=== PATIENT | female | born 1940 | race Caucasian/White ===

== ENCOUNTER → 2017-09-11 11:46 | Outpatient (CLI) | payer MEDICARE, SELFPAY ==
[2017-09-11 12:59] LABS: Absolute Lymphocyte Count 2.55 X10^3/ul (0.83-4.51); Absolute Neutrophil Count 5.2 X10^3/uL (2.0-7.7); Basophil# 0.01 X10^3/uL; Basophil% 0.1 % (0-1); Eosinophil# 0.23 X10^3/uL; Eosinophils% 2.7 % (0-5); Hematocrit 39.3 % (37-47); Hemoglobin 12.2 g/dl (12.0-15.0); Lymphocyte # 2.55 X10^3/ul (4.0); Lymphocyte % 29.6 % (19-41); Mean Corpuscular Hgb 28.8 pg (27.0-32.0); Mean Corpuscular Volume 92.9 fL (81-99); Mean Platelet Vol. 10.6 fl (6.2-12.0); Monocyte# 0.64 X10^3/uL; Monocyte% 7.4 % (0-10); Neutrophil # 5.17 X10^3/uL (2.7-7.7); Neutrophil % 60.1 % (47-70); Platelet Count 206 K/mm3 (150-450); RBC Distribution Width CV 14.5 % (11.6-14.6); Red Blood Count 4.23 M/mm3 (4.2-5.4); White Blood Count 8.6 K/mm3 (4.4-11.0)
[2017-09-11 13:00] LABS: POSITIVE COUNT NO; POSITIVE DIFFERENTIAL NO; POSITIVE MORPHOLOGY NO
[2017-09-11 13:17] LABS: Vitamin D,25 Hydroxy 55.5 ng/mL
[2017-09-11 13:22] LABS: ALB/GLOB Ratio 0.8 RATIO (0.9-2.4); AST(SGOT) 30 U/L (15-37); Alanine Aminotransfer ALT/SGPT 44 U/L (12-78); Albumin, Serum 3.2 g/dL (3.4-5.0); Alkaline Phosphatase 105 U/L (45-117); Anion Gap 9 (5-15); BUN 28 mg/dL (7-18); BUN/Creat Ratio 21.1 RATIO (10-20); Calcium,Total 8.3 mg/dL (8.5-10.1); Chloride 111 mmol/L (98-107); Creatinine, Serum 1.33 mg/dL (0.55-1.02); EST Glomerular Filtration Rate 41 mL/min (>60); Est Glom Filt Rate - Afr Amer 50 mL/min (>60); Globulin 4.2 g/dL (2.2-4.2); Glucose 91 mg/dL (70-110); Potassium 4.4 mmol/L (3.5-5.1); Protein, Total 7.4 g/dL (6.4-8.2); Sodium Level 144 mmol/L (136-145); Thyroid Stim Hormone (TSH) 1.92 uIU/mL (0.358-3.74)
== END ==
PROVIDERS: Family Provider Family Medicine Geriatric Medicine; PCP Family Medicine Geriatric Medicine; Visit Provider Family Medicine Geriatric Medicine
DX: E11.9 Type 2 diabetes mellitus without complications (principal); I10 Essential (primary) hypertension; E55.9 Vitamin D deficiency, unspecified
CPT/HCPCS: 36415; 80053; 82306; 84443; 85025

== ENCOUNTER → 2017-11-18 11:58 | Outpatient (CLI) | payer MEDICARE, SELFPAY | PROVIDERS: Family Provider Family Medicine Geriatric Medicine; PCP Family Medicine Geriatric Medicine; Visit Provider Family Medicine Geriatric Medicine | DX: M79.609 Pain in unspecified limb (principal); E78.4 Other hyperlipidemia ==

== ENCOUNTER → 2018-03-11 14:04 | Outpatient (CLI) | payer MEDICARE, SELFPAY ==
[2018-03-11 17:34] LABS: Absolute Lymphocyte Count 2.66 X10^3/ul (0.83-4.51); Absolute Neutrophil Count 5.3 X10^3/uL (2.0-7.7); Basophil# 0.01 X10^3/uL; Basophil% 0.1 % (0-1); Eosinophil# 0.09 X10^3/uL; Hematocrit 40.1 % (37-47); Hemoglobin 12.5 g/dl (12.0-15.0); Lymphocyte # 2.66 X10^3/ul (4.0); Lymphocyte % 30.6 % (19-41); Mean Corp Hgb Conc 31.2 g/gl (32-36); Mean Corpuscular Hgb 28.9 pg (27.0-32.0); Mean Corpuscular Volume 92.8 fL (81-99); Mean Platelet Vol. 10.5 fl (6.2-12.0); Monocyte# 0.68 X10^3/uL; Monocyte% 7.8 % (0-10); Neutrophil # 5.25 X10^3/uL (2.7-7.7); Neutrophil % 60.4 % (47-70); POSITIVE COUNT NO; POSITIVE DIFFERENTIAL NO; POSITIVE MORPHOLOGY NO; Platelet Count 227 K/mm3 (150-450); RBC Distribution Width CV 14.1 % (11.6-14.6); RBC Distribution Width SD 47.9 fl (35.1-43.9); Red Blood Count 4.32 M/mm3 (4.2-5.4); White Blood Count 8.7 K/mm3 (4.4-11.0)
[2018-03-11 17:55] LABS: ALB/GLOB Ratio 0.6 RATIO (0.9-2.4); AST(SGOT) 28 U/L (15-37); Alanine Aminotransfer ALT/SGPT 32 U/L (13-56); Alkaline Phosphatase 100 U/L (45-117); Anion Gap 8 (5-15); BUN 25 mg/dL (7-18); BUN/Creat Ratio 18.7 RATIO (10-20); Calcium,Total 8.5 mg/dL (8.5-10.1); Chloride 106 mmol/L (98-107); Creatinine, Serum 1.34 mg/dL (0.55-1.02); EST Glomerular Filtration Rate 41 mL/min (>60); Est Glom Filt Rate - Afr Amer 49 mL/min (>60); Globulin 4.7 g/dL (2.2-4.2); Glucose 107 mg/dL (74-106); Potassium 4.1 mmol/L (3.5-5.1); Protein, Total 7.7 g/dL (6.4-8.2); Sodium Level 141 mmol/L (136-145); Thyroid Stim Hormone (TSH) 1.48 uIU/mL (0.358-3.74)
[2018-03-12 10:14] LABS: Vitamin D,25 Hydroxy 80.5 ng/mL (29.95-100.01)
== END ==
PROVIDERS: Family Provider Family Medicine Geriatric Medicine; PCP Family Medicine Geriatric Medicine; Visit Provider Family Medicine Geriatric Medicine
DX: E11.9 Type 2 diabetes mellitus without complications (principal); I10 Essential (primary) hypertension; E55.9 Vitamin D deficiency, unspecified
CPT/HCPCS: 36415; 80053; 82306; 84443; 85025

== ENCOUNTER → 2018-09-13 14:28 | Outpatient (CLI) | payer MEDICARE, SELFPAY ==
[2018-09-13 16:40] LABS: Absolute Lymphocyte Count 3.38 X10^3/ul (0.83-4.51); Absolute Neutrophil Count 5.7 X10^3/uL (2.0-7.7); Basophil# 0.02 X10^3/uL; Basophil% 0.2 % (0-1); Eosinophil# 0.34 X10^3/uL; Eosinophils% 3.3 % (0-5); Hematocrit 40.5 % (37-47); Hemoglobin 12.2 g/dl (12.0-15.0); Lymphocyte # 3.38 X10^3/ul (4.0); Lymphocyte % 32.8 % (19-41); Mean Corp Hgb Conc 30.1 g/gl (32-36); Mean Corpuscular Hgb 28.4 pg (27.0-32.0); Mean Corpuscular Volume 94.2 fL (81-99); Mean Platelet Vol. 10.6 fl (6.2-12.0); Monocyte# 0.84 X10^3/uL; Monocyte% 8.2 % (0-10); Neutrophil # 5.69 X10^3/uL (2.7-7.7); Neutrophil % 55.3 % (47-70); Platelet Count 214 K/mm3 (150-450); RBC Distribution Width CV 15.1 % (11.6-14.6); RBC Distribution Width SD 51.5 fl (35.1-43.9); White Blood Count 10.3 K/mm3 (4.4-11.0)
[2018-09-13 16:50] LABS: POSITIVE COUNT NO; POSITIVE DIFFERENTIAL NO; POSITIVE MORPHOLOGY NO
[2018-09-13 17:04] LABS: Vitamin D,25 Hydroxy 61.4 ng/mL (29.95-100.01)
[2018-09-13 17:12] LABS: ALB/GLOB Ratio 0.7 RATIO (0.9-2.4); AST(SGOT) 23 U/L (15-37); Alanine Aminotransfer ALT/SGPT 31 U/L (13-56); Alkaline Phosphatase 105 U/L (45-117); Anion Gap 10 (5-15); BUN 17 mg/dL (7-18); BUN/Creat Ratio 13.9 RATIO (10-20); Calcium,Total 8.3 mg/dL (8.5-10.1); Chloride 110 mmol/L (98-107); Creatinine, Serum 1.22 mg/dL (0.55-1.02); EST Glomerular Filtration Rate 45 mL/min (>60); Est Glom Filt Rate - Afr Amer 55 mL/min (>60); Globulin 4.2 g/dL (2.2-4.2); Glucose 97 mg/dL (74-106); Protein, Total 7.2 g/dL (6.4-8.2); Sodium Level 144 mmol/L (136-145); Thyroid Stim Hormone (TSH) 1.71 uIU/mL (0.358-3.74)
== END ==
PROVIDERS: Family Provider Family Medicine Geriatric Medicine; PCP Family Medicine Geriatric Medicine; Visit Provider Family Medicine Geriatric Medicine
DX: E11.9 Type 2 diabetes mellitus without complications (principal); I10 Essential (primary) hypertension; E55.9 Vitamin D deficiency, unspecified
CPT/HCPCS: 36415; 80053; 82306; 84443; 85025

== ENCOUNTER → 2019-03-15 13:17 | Outpatient (CLI) | payer MEDICARE, SELFPAY ==
[2018-09-22 12:37] VITALS: BMI 39.2
[2019-03-15 16:05] LABS: Absolute Lymphocyte Count 1.58 X10^3/uL (0.83-4.51); Absolute Neutrophil Count 2.7 X10^3/uL (2.0-7.7); Basophil# 0.01 X10^3/uL; Basophil% 0.2 % (0-1); Hematocrit 37.6 % (37-47); Hemoglobin 11.7 g/dL (12.0-15.0); Lymphocyte # 1.58 X10^3/ul (4.0); Lymphocyte % 35.4 % (19-41); Mean Corp Hgb Conc 31.1 g/dL (32-36); Mean Corpuscular Hgb 28.5 pg (27.0-32.0); Mean Corpuscular Volume 91.7 fL (81-99); Mean Platelet Vol. 10.4 fl (6.2-12.0); Monocyte% 4.5 % (0-10); NRBC Flagged by Analyzer 0 % (0-5); Neutrophil # 2.66 X10^3/uL (2.7-7.7); Neutrophil % 59.7 % (47-70); Platelet Count 173 K/mm3 (150-450); RBC Distribution Width CV 16.2 % (11.6-14.6); RBC Distribution Width SD 54.4 fl (35.1-43.9); White Blood Count 4.5 K/mm3 (4.4-11.0)
[2019-03-15 16:27] LABS: Vitamin D,25 Hydroxy 83.6 ng/mL (29.95-100.01)
[2019-03-15 16:32] LABS: ALB/GLOB Ratio 0.7 RATIO (0.9-2.4); AST(SGOT) 23 U/L (15-37); Alanine Aminotransfer ALT/SGPT 27 U/L (13-56); Alkaline Phosphatase 95 U/L (45-117); Anion Gap 8 (5-15); BUN 17 mg/dL (7-18); BUN/Creat Ratio 13.3 RATIO (10-20); Calcium,Total 8.4 mg/dL (8.5-10.1); Chloride 110 mmol/L (98-107); Creatinine, Serum 1.28 mg/dL (0.55-1.02); EST Glomerular Filtration Rate 43 mL/min (>60); Est Glom Filt Rate - Afr Amer 52 mL/min (>60); Globulin 4.1 g/dL (2.2-4.2); Glucose 98 mg/dL (74-106); Potassium 3.5 mmol/L (3.5-5.1); Protein, Total 7.1 g/dL (6.4-8.2); Sodium Level 143 mmol/L (136-145); Thyroid Stim Hormone (TSH) 0.97 uIU/mL (0.358-3.74)
== END ==
PROVIDERS: Family Provider Family Medicine Geriatric Medicine; PCP Family Medicine Geriatric Medicine; Visit Provider Family Medicine Geriatric Medicine
DX: E11.9 Type 2 diabetes mellitus without complications (principal); I10 Essential (primary) hypertension; E55.9 Vitamin D deficiency, unspecified
CPT/HCPCS: 36415; 80053; 82306; 84443; 85025

== ENCOUNTER → 2019-07-04 14:01 | Outpatient (CLI) | payer MEDICARE, SELFPAY ==
[2018-09-22 12:37] VITALS: BMI 39.2
== END ==
LOC: LAB 14:04 → PSN 14:15
PROVIDERS: Family Provider Family Medicine Geriatric Medicine; PCP Family Medicine Geriatric Medicine; Referring Provider Family Medicine Geriatric Medicine; Visit Provider Family Medicine Geriatric Medicine
DX: R68.83 Chills (without fever) (principal)
CPT/HCPCS: 87633

== ENCOUNTER 2019-07-26 15:29 | Emergency (ER) | payer MEDICARE, SELFPAY ==
[2018-09-22 12:37] VITALS: BMI 39.2
[2019-07-26 15:30] VITALS: BP 187/98; PULSE 73; RESP 16; TEMP 36.7; O2SAT 98; BMI 32.9
--- NOTE | 2019-07-26 15:40 | CT_ITS ---
STUDY: CT ABDOMEN AND PELVIS WITHOUT CONTRAST REASON FOR EXAM: Female, 78 years old. Abdominal pain. Constipation RADIATION DOSAGE (If Supplied By Facility): CTDIvol = ( 20.86 ) mGy, DLP = ( 1011.07 ) mGycm TECHNIQUE: Transaxial images were obtained from the dome of the diaphragm to the symphysis pubis without oral contrast, and without intravenous contrast. Sagittal and coronal images were reconstructed. Individualized dose optimization techniques were used for this CT. COMPARISON: November 09, 2015. FINDINGS: The visualized lung bases are unremarkable. The visualized portions of the heart are within normal limits. Normal liver. There are multiple gallstones. Normal spleen. Normal pancreas. Normal bilateral adrenal glands. Normal right kidney. Postoperative changes with resection of previously seen mass of the left kidney. There are postoperative changes in the adjacent soft tissues. There is 1.3 cm cyst. There is no hydronephrosis. Normal visualized stomach. Normal small intestine. Normal colon. There is non-visualization of the appendix. There is diffuse atherosclerotic calcification of the abdominal aorta, without a demonstrated aneurysm. Normal inferior vena cava. Normal retroperitoneum. Normal urinary bladder. There are calcified uterine fibroids. There is no free fluid in the abdomen or pelvis. Normal abdominal wall. There is lumbar levoscoliosis with degenerative change. CT/Abdomen/Pelvis without Cont IMPRESSION: Multiple gallstones. No biliary dilatation. No dilated loops of bowel. Postoperative change of the left kidney with resection of previously seen mass. Electronically Signed: Danial Wilkins MD at 16:56 EST , Service support ,
--- NOTE | 2019-07-26 15:43 | ED.VIS.GI ---
History of Present Illness Chief Complaint: Abd Pain Narrative: Patient presenting for evaluation secondary to abdominal pain. Patient reports that yesterday she bought herself a lemon meringue pie from [employer]. After eating it she states that she started to have intense abdominal cramping. She reports that this was a diffuse type abdominal pain that had no exacerbating relieving factors. Patient states that she is still having these cramping type sensations and is actually been constipated since about Thursday. Patient denies any nausea vomiting. She denies any fevers. She denies any urinary signs or symptoms. Patient denies that she has had any sort of abdominal surgeries in the past. Review of systems otherwise negative. Past Medical History - Allergies and Home Meds Allergies/Adverse Reactions: Allergies aspirin Adverse Reaction (Verified 07/26/19 15:34) Unknown Primary Care Physician: Cruz Dias Chi, MD [Primary Care Provider] - Past Medical History: - - Hypertension, hyperlipidemia, diabetes Smoking Status: Former smoker Review of Systems All systems negative except as indicated General: Denies: Chills, Fever, Sweats Eyes: Denies: Visual changes - bilaterally, Diplopia ENT: Denies: Rhinorrhea, Sore throat Cardiovascular: Denies: Chest pain, Palpitations Respiratory: Denies: Dyspnea, Cough, Dyspnea on exertion Gastrointestinal: Reports: Abdominal pain, Constipation Genitourinary: Denies: Dysuria, Hematuria, Frequency Musculoskeletal: Denies: Back pain, Extremity Pain Skin: Denies: Rash, Wounds Neurological: Denies: Headache, Weakness, Numbness Psych: Denies: Depression Endocrine: Denies: Polyuria Hematologic: Denies: Easy bleeding Allergy: Denies: Swelling of the mouth Physical Exam Vital Signs/Narrative: Vital Signs Temp Pulse Resp BP Pulse Ox 07/26/19 15:30 98.0 F 73 16 187/98 H 98 Inital Vital Signs reviewed: Yes General: Well nourished, Well developed, No Acute Distress Head: Normocephalic, Atraumatic Eyes: Perrl, EOMI ENT: Moist mucous membranes, No rhinorrhea Neck: Supple, Nontender Cardiovascular: Regular rate, Regular rhythm, No murmurs Respiratory: No distress, CTA bilaterally, Chest nontender Abdomen: Soft, Tender - Epigastric and suprapubic. Negative for: Guarding, Rebound tenderness Back: Nontender, Normal Inspection Extremities: Nontender, No edema Skin: Normal color, No rash Neurological: Alert, Oriented x3, Cranial nerves II-XII grossly intact, Normal Strength, Normal Sensation Psychological: Normal affect, Normal Mood Diagnostic/Tx/Re-eval - Medical Decision Making Patient presented secondary to abdominal pain. She did have diffuse pain, so IV was established laboratory studies were obtained and CT imaging was performed. CT was negative for acute pathology. Chemistry was found to be unremarkable with no evidence of electrolyte dyscrasia renal insufficiency or elevation of lipase. Patient's CBC was remarkable for some leukopenia with a white blood cell count in the 3000 range, and thrombocytopenia with a platelet count in the 50,000 range. This is new onset for the patient. I do not feel that the patient requires admission for this, but I did arrange close follow-up with her primary care physician. Patient is on no medications at this time that would make me think of platelet suppression, and has not had no recent surgeries or exposures to heparin or other medications that would cause thrombocytopenia. Patient was informed of her laboratory studies. She had improvement with treatment with Bentyl. Patient will be discharged with a course of the same. ED Disposition - Plan for ED Patient: Disposition: Home or Assisted Living Diagnosis: Thrombocytopenia, Abdominal pain Instructions: ABDOMINAL PAIN, Unknown Cause, (Female), Thrombocytopenia Prescriptions: Dicyclomine HCl [Bentyl] 20 mg PO TIDAC #20 cap Transmission Status: Pending to [facility] - [place] - [address] Referrals: Cruz Dias Chi, MD [Primary Care Provider] - 3-5 Days
[2019-07-26] MEDS: Dicyclomine 10 MG Capsule 20 MG PO (16:07)
[2019-07-26 16:36] LABS: Hematocrit 36.2 % (37-47); Hemoglobin 11.5 g/dL (12.0-15.0); Mean Corp Hgb Conc 31.8 g/dL (32-36); Mean Corpuscular Volume 100.8 fL (81-99); Mean Platelet Vol. 9.9 fl (6.2-12.0); POSITIVE COUNT YES; POSITIVE MORPHOLOGY YES; Platelet Count 54 K/mm3 (150-450); RBC Distribution Width CV 17.1 % (11.6-14.6); RBC Distribution Width SD 60.2 fl (35.1-43.9); Red Blood Count 3.59 M/mm3 (4.2-5.4); White Blood Count 3.4 K/mm3 (4.4-11.0)
[2019-07-26 16:40] LABS: Differential Indicated MANUAL DIFF
[2019-07-26 16:55] LABS: ALB/GLOB Ratio 0.7 RATIO (0.9-2.4); AST(SGOT) 25 U/L (15-37); Alanine Aminotransfer ALT/SGPT 43 U/L (13-56); Albumin, Serum 3.2 g/dL (3.2-5.0); Alkaline Phosphatase 88 U/L (45-117); Anion Gap 8 (5-15); BUN 22 mg/dL (7-18); BUN/Creat Ratio 18.2 RATIO (10-20); Chloride 107 mmol/L (98-107); Creatinine, Serum 1.21 mg/dL (0.55-1.02); EST Glomerular Filtration Rate 46 mL/min (>60); Est Glom Filt Rate - Afr Amer 55 mL/min (>60); Estimated Creatinine Clearance 31.19 ml/min; Globulin 4.4 g/dL (2.2-4.2); Glucose 145 mg/dL (74-106); Lipase 169 U/L (73-393); Potassium 4.1 mmol/L (3.5-5.1); Protein, Total 7.6 g/dL (6.4-8.2); Sodium Level 140 mmol/L (136-145)
[2019-07-26 18:15] LABS: Myelocyte 3 (0-0); Neutrophil-Band 6 % (0-5); Neutrophil-Segmented 43 % (47-70); Total Cells Counted 100 (MANUAL DIFF)
[2019-07-26 18:16] LABS: Anisocytosis 2+; Differential Comment SCANNED; Eosinophil 1 % (0-5); Lymphocyte 32 % (19-41); Macrocytosis 1+; Monocyte 15 % (0-10); Ovalocyte RARE; Platelet Estimate MKD DEC (ADEQ)
[2019-07-26 18:18] LABS: Absolute Lymphocyte Count 1.09 X10^3/uL (0.83-4.51); Absolute Neutrophil Count 1.7 X10^3/uL (2.0-7.7); Lymphocyte # 1.09 X10^3/ul (4.0); Neutrophil # 1.67 X10^3/uL (2.7-7.7); Reactive Lymphocyte RARE
[2019-07-27 15:29] LABS: Pathologist Review Reviewed
== END 2019-07-26 17:22 | disposition home or self-care (01) ==
PROVIDERS: Emergency Provider Emergency Medicine; Family Provider Family Medicine Geriatric Medicine; PCP Family Medicine Geriatric Medicine
DX: R10.9 Unspecified abdominal pain (principal); D69.6 Thrombocytopenia, unspecified; E11.9 Type 2 diabetes mellitus without complications; I10 Essential (primary) hypertension; E78.5 Hyperlipidemia, unspecified; Z79.899 Other long term (current) drug therapy; Z88.6 Allergy status to analgesic agent; Z87.891 Personal history of nicotine dependence
CPT/HCPCS: 74176; 80053; 83690; 85025; 99285; A4216

== ENCOUNTER → 2019-07-29 11:45 | Outpatient (CLI) | payer MEDICARE, SELFPAY ==
[2019-07-26 15:30] VITALS: BMI 32.9
[2019-07-29 12:41] LABS: Basophil# 0.02 X10^3/uL; Eosinophil# 0.03 X10^3/uL; Hematocrit 32.5 % (37-47); Hemoglobin 10.2 g/dL (12.0-15.0); Mean Corp Hgb Conc 31.4 g/dL (32-36); Mean Corpuscular Hgb 32.3 pg (27.0-32.0); Mean Corpuscular Volume 102.8 fL (81-99); Mean Platelet Vol. 10.4 fl (6.2-12.0); Monocyte# 0.55 X10^3/uL; NRBC Flagged by Analyzer 0 % (0-5); POSITIVE COUNT YES; POSITIVE DIFFERENTIAL YES; POSITIVE MORPHOLOGY YES; Platelet Count 54 K/mm3 (150-450); RBC Distribution Width CV 17.2 % (11.6-14.6); RBC Distribution Width SD 62.2 fl (35.1-43.9); Red Blood Count 3.16 M/mm3 (4.2-5.4); White Blood Count 3.3 K/mm3 (4.4-11.0)
[2019-07-29 12:46] LABS: Differential Indicated SCAN CRITERIA MET
[2019-07-29 13:39] LABS: Scan Smear per Review Criteria MANUAL DIFF
[2019-07-29 13:44] LABS: Lymphocyte 53 % (19-41); Metamyelocyte 2 % (0-1); Monocyte 19 % (0-10); Myelocyte 2 (0-0); Neutrophil-Band 7 % (0-5); Neutrophil-Segmented 17 % (47-70); Platelet Estimate MKD DEC (ADEQ); Total Cells Counted 100 (MANUAL DIFF)
[2019-07-29 13:45] LABS: Anisocytosis 1+; Red Cell Morphology N CHROM NORMAL (NORM C&C)
[2019-07-29 13:47] LABS: Atypical Lymphocyte 1+ %; Neutrophil # 0.79 X10^3/uL (2.7-7.7)
[2019-07-29 13:48] LABS: Absolute Lymphocyte Count 1.75 X10^3/uL (0.83-4.51); Absolute Neutrophil Count 0.8 X10^3/uL (2.0-7.7); Lymphocyte # 1.75 X10^3/ul (4.0)
[2019-08-01 14:16] LABS: Pathologist Review Reviewed
== END ==
PROVIDERS: Family Provider Family Medicine Geriatric Medicine; PCP Family Medicine Geriatric Medicine; Visit Provider Family Medicine Geriatric Medicine
DX: D69.6 Thrombocytopenia, unspecified (principal)
CPT/HCPCS: 36415; 85025

== ENCOUNTER → 2019-08-26 08:25 | Outpatient (CLI) | payer MEDICARE, SELFPAY ==
[2019-08-09 10:07] VITALS: BMI 32.2
[2019-08-26] VITALS (9 sets, daily range): BP systolic 118–158; BP diastolic 49–76; PULSE 72–85; RESP 12–20; TEMP 36.7; O2SAT 97–100; BMI 34.4
--- NOTE | 2019-08-26 | BMB_PTH ---
PATIENT: REGINA BE LOC: CT U#:[id number] AGE/SX: 84/F ROOM: RE08/26/[address]: Dr. Leno Mcdonnell MD : 1940 BED: DIS: SPEC #: [id number] RECD: 08/26/19 11:48 STATUS: BLAKE REQ #: [id number] MALENA: 08/26/19 00:[address]: Leno Mcdonnell DEPT: BONE MARROW RECD BY: Americo Castro ENTERED: 08/26/19 11:48 SP TYPE: BMB OTHR DR: Dr. 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 The complete report is viewable in patient's EMR. Cytogenetic and FISH studies are pending at this time. See comment. SJ:ara 08/30/19 COMMENT Immunohistochemistry ([id number]) supports the above diagnosis. This case is discussed with Dr. Mcdonnell on 08/30/19. Case has been reviewed in consultation with Dr. Feliz who concurs with the above diagnosis. IDC:AM BONE MARROW STUDY Slides are reviewed. CBC DATE: 08/26/19 WBC 3.5; RBC 1.9; HGB 6.5; HCT 21; MCV 110.5; RDW 18.4; PLTS 44,000 SEGS 15; LYMPHS 67%; MONOS 7%; EOS 2%; BASOS 1%, band 1; meta 5; myelo 1 promyelocyte - 1 PERIPHERAL SMEAR: Submitted. RBC: Macrocytic anemia. WBC: Leukopenia and neutropenia. Rare immature cells are noted suspicious for blasts. The WBC count is compatible to as reported above. PLTS: Decreased. BONE MARROW ASPIRATE DIFFERENTIAL: 200 cell count. Blasts % (normal 0-2): 25 Promyelocytes % (normal 1-5): 5 Myelocytes and metamyelocytes % (normal 17-41): 27 Bands and Segs % (normal 15-32): 8 Eos % (normal 1-6): 1 Basos % (normal 0-1): 0 Monocytes % (normal 0-4): 10 Erythroid Precursors % (normal 17-35): 8 Lymphocytes % (normal 7-13): 6 Plasma Cells % (normal 0-2): 0 ASPIRATE FINDINGS: Site: Not specified Aspicular, Hypocellular Comment: The above count may not be accurate due to hemodilution. Megakaryocytes are not seen. Smears show increased number of blasts and immature monocytes. Myeloid cells show left shift. Decreased number of erythroid cells are also noted. CORE BIOPSY FINDINGS: Site: Not specified Adequacy: Limited Cellularity: 40% M/E ratio: Normal myeloid and erythroid cells are markedly decreased in number. Increased number of immature cells consistent with blasts are noted. Megakaryocytes: Present and decreased in number. Bony trabeculae: Unremarkable. Granulomas: Absent. Lymphoid aggregate: Absent. Atypical infiltrate: Absent. Comment: Increased number of immature cells consistent with blasts is noted and comprise about 25-30% of nucleated cells. Focal clustering of blasts is also noted. Immunohistochemistry ([id number]) shows increased number of blasts. ASPIRATE CLOT FINDINGS: Site: Not specified Marrow particles: Numerous Cellularity: 30-50% M/E ratio: Normal myeloid and erythroid cells are markedly decreased in number. Increased number of immature cells consistent with blasts is noted. Megakaryocytes: Present and decreased in number. Granulomas: Absent. Lymphoid aggregates: Present. Atypical infiltrates: Absent. Comment: Increased number of immature cells consistent with blasts is noted and comprise about 25-30% of nucleated cells. Focal clustering of blasts is also noted. Immunohistochemistry ([id number]) supports the increased number of blasts. Interstitial infiltrates of small lymphocytes and lymphoid aggregates are noted, polytypic in nature, favor benign SPECIAL STAINS WITH MATCHED CONTROLS: Iron: Increased in core biopsy and clot section. Aspirate smears are aspicular and are noncontributory. Reticulin: No significant increase of reticulin fibers is noted. PAS: Highlights myeloid cells and megakaryocytes. BONE MARROW GROSS A - Received is a container labeled with the patient's name and designated core biopsy. The specimen consists of multiple fragments of blood clots mixed with a few fragments of ryan bone measuring in aggregate 0.5 x 0.5 x 0.1 cm. The specimen is totally submitted in one cassette after decalcification. B - Received labeled with the patient's name and designated aspirate is a specimen that consists of approximately 2 cc of reddish fluid that on filtration yields multiple irregular fragments of ryan tissue measuring in aggregate 2 x 1 x <0.1 cm. The specimen is totally submitted in one cassette. C - Also received are 26 unstained and 1 peripheral stained slides. The unstained slides are submitted for appropriate staining. Also received are three green top tubes which are sent to our reference lab for flow, cytogenetics and AML, CML and MDS studies. / AM:ara 08/26/19 TC:0 CPT: 29592, 25036, 34960 x2, 27818 x3, 77826 ADDENDUM ADDENDUM ADDENDUM ADDENDUM ADDENDUM ADDENDUM ADDENDUM ADDENDUM ADDENDUM ADDENDUM ADDENDUM ADDENDUM ADDENDUM ADDENDUM ADDENDUM ADDENDUM ADDENDUM ADDENDUM ADDENDUM ADDENDUM ADDENDUM ADDENDUM ADDENDUM 09/09/2019 09:40 ADDENDUM 09/09/2019 09:40 ADDENDUM 09/09/2019 09:40 ADDENDUM 09/09/2019 09:40 ADDENDUM 09/09/2019 09:40 REPORTS FROM [facility] TEST: Chromosome, leukemia/lymphoma CYTOGENETIC RESULT: 45,XX,add(5)(q13),-7,+11,add(16)(p13),-18[cp17]/46,XX[3] INTERPRETATION: Transforming MDS TEST: AML FISH panel FISH RESULT: 64% of nuclei positive for 5Q deletion; 68% of nuclei positive for 7Q deletion; 6% of nuclei positive for trisomy 8; 66% of nuclei positive for three intact KMT2A signals INTERPRETATION: AML/MDS related close detected TEST: CML FISH FISH RESULT: Normal; no BCR or ABL1 gene rearrangement observed. INTERPRETATION: nuc haris 9q34(ASS1,ABL1)x2,22q11.2(BCRx2)[200] TEST: MDS FISH panel FISH RESULT: 4.5% of nuclei positive for three chromosome 8 signals INTERPRETATION: MDS/MPN/AML related clone detected Please see complete report in e-chart or EMR for further details
--- NOTE | 2019-08-26 | IMM_PTH ---
PATIENT: REGINA BE LOC: CT U#:[id number] AGE/SX: 84/F ROOM: RE08/26/[address]: Dr. Leno Mcdonnell MD : 1940 BED: DIS: SPEC #: [id number] RECD: 08/29/19 12:20 STATUS: SOUVega REQ #: [id number] MALENA: 08/26/19 00:[address]: Leno Mcdonnell DEPT: IMMUNOHISTOCHEMISTRY RECD BY: Ailin Remy ENTERED: 08/29/19 12:24 SP TYPE: IMMUNO OTHR DR: Dr. Cruz Dias MD Tissues: A - Bone marrow of iliac crest B - Bone marrow of iliac crest Procedures: CD20 (add) CD3 (add) CD45 (add) CD5 (add) CD56 (add) CD79A (add) CD34 (initial) PHYSICIAN & INSTITUTION [place] [address] SPECIMEN INFORMATION: Tissue Source: A - Bone marrow core, B - Bone marrow clot Clinical Info: Pancytopenia Specimen Number: [id number] A & B CPT code: 77292 x2, 72194 x7 METHODOLOGY: Deparaffinized sections of prefer/formalin-fixed tissue or PAP/DQ stained slides are incubated with monoclonal/polyclonal antibodies/oligonucleotide probes. Localization is made via biotin free immunoperoxidase method. Appropriate controls are performed and reacted as expected. Results on target cell population are indicated in the following table: RESULTS: ANTIBODY / CLONE RESULT Block A CD34 (QBEnd-10) positive CD56 (123C3.D5) negative Block B CD34 (QBEnd-10) positive CD56 (123C3.D5) negative CD3 (PS1) positive CD5 (SP10) positive CD20 (L26) positive CD79a (11E3) positive CD45 (RP2/18) positive These tests were developed and their performance characteristics determined by [facility]. They may not have been cleared or approved by the U.S. Food and Drug Administration. The FDA has determined that such clearance or approval is not necessary. The above immunohistochemical/dualISH markers are ordered and reviewed by the Pathologist. INTERPRETATION: A. Bone marrow core: Increased number of blasts are noted consistent with acute myeloid leukemia. B. Bone marrow clot: Increased number of blasts are noted consistent with acute myeloid leukemia Interstitial infiltrates of small lymphocytes and lymphoid aggregates are noted, polytypic in nature, favor benign. SJ:ara 08/30/19 Case has been reviewed in consultation with Dr. Feliz who concurs with the above diagnosis. IDC:AM
[2019-08-26 08:43] LABS: Hemoglobin 6.5 g/dL (12.0-15.0); Mean Corpuscular Hgb 34.2 pg (27.0-32.0); Mean Corpuscular Volume 110.5 fL (81-99); POSITIVE COUNT YES; POSITIVE DIFFERENTIAL YES; POSITIVE MORPHOLOGY YES; RBC Distribution Width CV 18.4 % (11.6-14.6); RBC Distribution Width SD 70.5 fl (35.1-43.9); White Blood Count 3.5 K/mm3 (4.4-11.0)
[2019-08-26 08:48] LABS: Differential Indicated MANUAL DIFF; Platelet Count 44 K/mm3 (150-450)
--- NOTE | 2019-08-26 09:01 | CT_ITS ---
PROCEDURE: CT GUIDED left iliac bone marrow biopsy. DATE: August 26, 2019. INDICATION: Female, 78 years old. Melvin cytopenia. PHYSICIAN: Arnulfo Hinojosa M.D. RADIATION DOSAGE (If Supplied By Facility): CTDIvol = ( 17.5 ) mGy, DLP = ( 442.6 to ) mGycm. Individualized dose optimization techniques were utilized. PROCEDURE: The risks, benefits, and alternatives to the procedure were explained to the patient. The specific risk of hemorrhage requiring further treatment or intervention was detailed and accepted. Follow-up instructions were discussed with the patient as well. Written informed consent was obtained. The patient was brought into the CT suite and placed in the prone position. . An appropriate entry site was identified. The overlying skin was prepped and draped in the usual sterile fashion. 1% lidocaine was administered subcutaneously for local anesthesia. Conscious sedation was performed. Conscious sedation was started at 9:45 AM and terminated at 9:56 AM. The patient received 2 mg of Versed and 50 mcg of fentanyl intravenously. The patient was independently monitored by the department nurse. Under CT guidance, a a bone marrow biopsy and bone marrow aspirates of the posterior left iliac bone were performed The specimens were then placed in the appropriate fluid and transported to the laboratory for analysis. Hemostasis was obtained. The patient tolerated the procedure well without immediate complications. CT/Biopsy/Inj or Needle Placement IMPRESSION: Successful CT guided bone marrow biopsy of the posterior left iliac bone., as described above. Electronically Signed: Arnulfo Hinojosa, at 10:47 EST , Service support ,
[2019-08-26 09:31] LABS: Basophil 1 % (0-1); Eosinophil 2 % (0-5); Lymphocyte 67 % (19-41); Metamyelocyte 5 % (0-1); Monocyte 7 % (0-10); Myelocyte 1 (0-0); Neutrophil-Band 1 % (0-5); Neutrophil-Segmented 15 % (47-70); Promyelocyte 1 (0-0); Total Cells Counted 100 (MANUAL DIFF)
[2019-08-26 09:32] LABS: Anisocytosis 1+; Platelet Estimate MKD DEC (ADEQ); Red Cell Morphology N CHROM NORMAL (NORM C&C)
[2019-08-26 09:33] LABS: Absolute Lymphocyte Count 2.35 X10^3/uL (0.83-4.51); Absolute Neutrophil Count 0.6 X10^3/uL (2.0-7.7); Lymphocyte # 2.35 X10^3/ul (4.0)
[2019-08-26] MEDS: Midazolam 2 MG/2 ML Syringe IV (09:45)
[2019-08-26] MEDS: fentaNYL 100 MCG/2 ML Ampul IV (09:47)
[2019-08-26 14:25] LABS: Pathologist Review Reviewed
== END ==
PROVIDERS: Family Provider Family Medicine Geriatric Medicine; PCP Family Medicine Geriatric Medicine; Referring Provider Internal Medicine Medical Oncology; Visit Provider Internal Medicine Medical Oncology
DX: C92.00 Acute myeloblastic leukemia, not having achieved remission (principal); D61.818 Other pancytopenia
CPT/HCPCS: 38222; 36415; 77012; 85025; 88305; 88311; 88313; 88341; 88342; 99156; J7040; A4216

== ENCOUNTER 2019-09-07 12:27 | Observation (INO) | payer MEDICARE, MEDICAID, SELFPAY ==
[2019-09-01 14:00] VITALS: BMI 33.5
[2019-09-07] VITALS (13 sets, daily range): BP systolic 98–139; BP diastolic 42–98; PULSE 69–86; RESP 16–22; TEMP 36.6–37.7; O2SAT 91–97; BMI 33.3; BMI 31.4
[2019-09-07 13:05] LABS: Hematocrit 17.3 % (37-47); Mean Corp Hgb Conc 31.2 g/dL (32-36); Mean Corpuscular Hgb 34.8 pg (27.0-32.0); Mean Corpuscular Volume 111.6 fL (81-99); Mean Platelet Vol. 12.1 fl (6.2-12.0); POSITIVE COUNT YES; POSITIVE DIFFERENTIAL YES; POSITIVE MORPHOLOGY YES; Platelet Count 31 K/mm3 (150-450); RBC Distribution Width CV 20.2 % (11.6-14.6); RBC Distribution Width SD 80.8 fl (35.1-43.9); Red Blood Count 1.55 M/mm3 (4.2-5.4); White Blood Count 2.7 K/mm3 (4.4-11.0)
[2019-09-07 13:17] LABS: International Normalized Ratio 1.4; Prothrombin Time (Protime)PT. 17.1 SECONDS (11.7-14.9)
[2019-09-07 13:19] LABS: ALB/GLOB Ratio 0.4 RATIO (0.9-2.4); AST(SGOT) 82 U/L (15-37); Alanine Aminotransfer ALT/SGPT 90 U/L (13-56); Albumin, Serum 1.9 g/dL (3.2-5.0); Alkaline Phosphatase 60 U/L (45-117); Anion Gap 11 (5-15); BUN 34 mg/dL (7-18); Calcium,Total 8.1 mg/dL (8.5-10.1); Chloride 104 mmol/L (98-107); Creatinine, Serum 1.79 mg/dL (0.55-1.02); EST Glomerular Filtration Rate 29 mL/min (>60); Est Glom Filt Rate - Afr Amer 35 mL/min (>60); Estimated Creatinine Clearance 21.08 ml/min; Globulin 4.7 g/dL (2.2-4.2); Glucose 176 mg/dL (74-106); Potassium 3.2 mmol/L (3.5-5.1); Protein, Total 6.6 g/dL (6.4-8.2); Sodium Level 139 mmol/L (136-145)
[2019-09-07 13:24] LABS: Differential Indicated MANUAL DIFF; Hemoglobin 5.4 g/dL (12.0-15.0)
[2019-09-07 14:03] LABS: Anisocytosis 1+; Blast 13 % (0-0); Lymphocyte 40 % (19-41); Metamyelocyte 7 % (0-1); Monocyte 9 % (0-10); Myelocyte 5 (0-0); Neutrophil-Segmented 22 % (47-70); Platelet Estimate MKD DEC (ADEQ); Promyelocyte 4 (0-0); Red Cell Morphology N CHROM NORMAL (NORM C&C); Total Cells Counted 100 (MANUAL DIFF)
[2019-09-07 14:05] LABS: Absolute Neutrophil Count 0.6 X10^3/uL (2.0-7.7)
--- NOTE | 2019-09-07 14:22 | HP.PCM_ITS ---
History of Present Illness Date of Admission: 09/07/19 Chief Complaint: Weakness The patient is a 78 year old F PMH as below who presents from home with weakness and fatigue. She is also little bit short of breath. The family states that about a week ago she was diagnosed with AML and at that time she refused treatment, oncology did discuss all the options with her and she still refused therapy. She presents today because of abnormal labs with a hemoglobin of 5.4 and a platelet count of 31. The daughter said that she has been becoming being more confused as time has gone on, and also has become more tired and fatigued, even since her diagnosis last week. In discussing this with the patient, she st ates that she would like hospice and that she understands and hospice is end-of-life care. She would like to go home with hospice and she does not want to go to an inpatient hospice facility. Past Medical History Past Medical History (Chronic Problems): Chronic Problems (Last Reviewed 09/01/19 @ 13:59 by Sidra Joshi) Hyperlipidemia (Chronic) Essential (primary) hypertension (Chronic) Medical History: Medical History (Last Reviewed 09/01/19 @ 13:59 by Sidra Joshi) Hyperlipidemia (Chronic) E78.5 Essential (primary) hypertension (Chronic) I10 Arthritis M19.90 Essential tremor G25.0 GERD (gastroesophageal reflux disease) K21.9 Hypokalemia E87.6 Obesity E66.9 Type 2 diabetes mellitus E11.9 Lung cancer C34.90 Allergies aspirin Adverse Reaction (Verified 09/07/19 12:30) Unknown Home Medications: Ambulatory Orders Medication Instructions Recorded ergocalciferol (vitamin D2) 1,250 50,000 unit PO QWEEK 28 Days #4 cap 09/21/18 mcg (50,000 unit) capsule nebivolol 10 mg tablet 10 mg PO DAILY 90 Days #90 tab 09/21/18 Omeprazole 20 mg PO DAILY 09/07/19 Unicomplex-M 1 tab PO DAILY 09/07/19 Surgical History: Surgical History (Last Updated 09/01/19 @ 14:00 by Sidra Joshi) History of bone marrow biopsy Z98.890 Aug 2019 History of open reduction and internal fixation (ORIF) procedure Z98.890 right ankle left lung wedge resection Onset Date: ~2015 Smoking Status: Former smoker Tobacco Use: Cigarettes Alcohol: None Drugs: None - *Family History Maternal Family History: Family History (Last Reviewed 09/01/19 @ 13:59 by Sidra Joshi) Sister Myocardial infarction Heart disease Mother Heart disease Father Heart disease Other CAD (coronary artery disease) History Items: Cancer Review of Systems Constitutional: Reports: Weakness, Fatigue. Denies: Chills, Fever, Weight Change HEENT: Denies: Head Aches, Sinus Congestion, Sinus Drainage Cardiovascular: Denies: Chest Pain, Palpitations Respiratory: Reports: Shortness of Breath. Denies: Cough, Shortness of breath at rest, Sputum production Gastrointestinal: Denies: Abdominal Pain, Nausea, Vomiting Genitourinary: Denies: Dysuria Musculoskeletal: Denies: Joint Pain, Joint Tenderness Skin: Denies: Rash, Wounds Neurological: Denies: Numbness, Tingling, Focal weakness Psychiatric: Denies: Anxiety, Depression Hematologic/ Lymphatic: Denies: Easy Bruising, Easy Bleeding VTE Information - Inpt Only VTE Present on Admission: No - Physical Exam Vitals/I&O's: Vital Signs Temp Pulse Resp BP Pulse Ox 98 F 85 16 122/59 H 97 09/07/19 12:28 09/07/19 12:28 09/07/19 12:28 09/07/19 12:28 09/07/19 12:28 Oxygen Delivery Method Room Air Weight: 188 lb Body Mass Index (BMI) 33.3 General: Alert, Oriented x3, Cooperative, Lethargic HEENT: Atraumatic, PERRLA, EOMI, Normocephalic, - - Pale conjunctiva Oral: Dry Mucosa Neck: Supple, No JVD Lungs: Clear to auscultation, Normal air movement, No rhonchi, No wheeze, No rales Cardiovascular: Regular rate, Regular Rhythm, Normal S1, Normal S2, No murmurs Abdomen: Soft, Non Tender, Non-Distended, No Hepato-splenomegaly Extremities: No edema, Capillary Refill Less than 3 Seconds Skin: No rashes, No breakdown, - - Skin is pale Neurological: Neuro grossly intact, Sensory exam intact to light touch and pain Psych/Mental Status: Normal Affect, Appropriate Laboratory Results 09/07/19 12:50: PT 17.1 H, INR 1.4 09/07/19 12:50: WBC 2.7 L, RBC 1.55 L, Hgb 5.4 L*, Hct 17.3 L, MCV 111.6 H, MCH 34.8 H, MCHC 31.2 L, RDW Std Deviation 80.8 H, RDW Coeff of Kalpesh 20.2 H, Plt Count 31 L*, MPV 12.1 H, Neut % (Auto) Not Reportable, Absolute Neuts (auto) 0.6 L, Absolute Lymphs (auto) 1.10, Total Counted 100, Neutrophils % (Manual) 22 L, Lymphocytes % (Manual) 40, Monocytes % (Manual) 9, Metamyelocytes % 7 H, Myelocytes % 5 H, Promyelocytes % 4 H, Blast Cells % 13 H*, Diff Path Review December foll, Platelet Estimate MKD DEC, RBC Morphology N CHROM, Anisocytosis 1+ 09/07/19 12:50: Sodium 139, Potassium 3.2 L, Chloride 104, Carbon Dioxide 24.0, Anion Gap 11, BUN 34 H, Creatinine 1.79 H, Estim Creat Clear Calc 21.08, Est GFR (MDRD) Af Amer 35 L, Est GFR (MDRD) Non-Af 29 L, BUN/Creatinine Ratio 19.0, Glucose 176 H, Calcium 8.1 L, Total Bilirubin 0.90, AST 82 H, ALT 90 H, Alkaline Phosphatase 60, Total Protein 6.6, Albumin 1.9 L, Globulin 4.7 H, Albumin/Globulin Ratio 0.4 L 09/07/19 12:50: Blood Type Pending, Antibody Screen Pending, Crossmatch See Detail Assessment/Plan All Active Problems (Last Reviewed 09/01/19 @ 13:59 by Sidra Joshi) Chest pain (Acute) Pancytopenia (Acute) Acute myeloid leukemia (Acute) 1. AML/pancytopenia -She had labs done today which showed a hemoglobin of 5.4 and she was asked to come into the ER -She is refusing therapies for AML and would like to go home with hospice after she receives a transfusion -2 units of PRBCs were ordered in the ER but have not been given yet -Her anemia has steadily been worsening as has her thrombocytopenia -In February of this year she had lab work with a hemoglobin 11.7 which was at baseline for her, her white blood cell count was normal, and her platelet count was at 173 -I had a 20-minute discussion with the family on CODE STATUS is well as what hospice is. They understand that hospice will come out relatively frequently but that it will be up to them to assist the patient with eating and bathing. She did not seem confused today, she knew she was at the hospital and who she was, but the daughter explains that she had told the previous ER physician that she had lung cancer when in reality she had kidney cancer. The daughter states that her mother does not have a POA. She did explain that last week in the oncologist office, the discussion was had about what therapeutic options and were not at that time her mother did not want any treatment for her AML. We will place a consult for hospice to come and discuss care with the family 2. HTN/HLD/hypokalemia -At this time will continue with her home blood pressure medications -Replace potassium which was 3.2 3. GERD -Stable -Continue with PPI DVT: SCDs Code Visit OBSV E&M: 05429 Initial observation care L2 Procedures: 83650 Advncd Care Plan 30 Min
--- NOTE | 2019-09-07 14:35 | ED.VISSUMM ---
- ER Visit Summary Date of Service: 09/07/19 Chief Complaint: Anemia History of Present Illness: The patient is a [address] Dias and Dr. Mcdonnell. 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 She knows that she is anemic. She would like to have a blood transfusion for this and understands that this will only help transiently. She does not want any further treatment for the AML and would like to have hospice help her pass peacefully at home. Physical Examination: Vitals: Stable. Afebrile. General: Well-nourished and well-developed. Head: Normocephalic atraumatic. Neck: Supple, no lymphadenopathy. No JVD. Nontender. Cardiovascular: Regular rate and rhythm. No murmurs. Respiratory: No respiratory distress. Clear to auscultation bilaterally. Abdominal: Soft, nontender, nondistended, normal bowel sounds. No guarding, rebound, or peritoneal signs. Back: Nontender. Extremities: Nontender, no edema. Skin: Pale, no rash. Neurologic: Alert and oriented ?3. Cranial nerves II through XII are intact. Normal strength and sensation. Psych: Normal affect. Test Results: CBC shows a white count of 2.7, H&H of 5.4 and 17.3, platelets 31. Chem-7 shows a potassium of 3.3, calcium 8.1, glucose 133, BUN 34, creatinine 1.79. He shown albumin 1.9, globulin 4.7, ALT of 90, AST of 83. INR is 1.4. Emergency Department Course and Treatment: Patient is resting comfortably without complaint. She was typed and crossed for 2 units of packed red blood cells. Treatment Plan: I did page the hospice nurse. I have not heard back from them yet. She will be admitted to the hospital overnight for transfusion and to have hospice see her and help make arrangements for her to go home. Patient was discussed with Dr. Smith. Disposition: Admitted in serious condition. Impression: 1. Anemia. 2. AML. 3. Hospice consult. This note was generated with My-App[employer]ation software. It may contain incorrect words, spelling, and punctuation that were not noted in review of the chart prior to signing
--- NOTE | 2019-09-07 16:16 | CASEMGMT ---
Social Work Note Charge Nurse updated this worker that Hospice will need to be consulted once pt arrives to floor as Hospice was unable to be reached while pt was in ED. Pt finally on floor. CHITO met with pt, pt's daughter Ene and pt's sister Janki. CHITO introduced self and role at [facility]. Pt is alert and orientated x3. CHITO updated pt and family that this worker received Hospice Consult and asked family for preference on Hospice Agency. Pt and Family in agreement with [facility]. CHITO explained that this worker will make referral to [facility] and then Hospice will ask for family member to call regarding arranging a meeting time. Pt and pt's family agreeable to [facility] calling pt's daughter Ene to arrange meeting time. CHITO placed a call to [facility] and provided referral to [facility]. Keiry states she already received the consult from the ED for pt. Keiry states she was informed to call pt directly but when she called the pt didn't answer and hasn't returned the phone call. CHITO updated Keiry that pt and pt's family are agreeable to Hospice calling pt's daughter Ene. CHITO provided Keiry with Ene's numbers listed on demographics. Plan: Hospice to arrange meeting time to discuss services. Pt wishes to discharge home with Hospice Cassie Busch BRIM EDGE TRIMMER, STUDIO DESIGNER
--- NOTE | 2019-09-07 20:19 | NURSING ---
spoke with pt's on phone per request. assisted pt to call from her phone in room
[2019-09-08 03:46] VITALS: BP 136/74; PULSE 83; RESP 24; TEMP 38.2; O2SAT 87; O2SAT 94
[2019-09-08] MEDS: 0.9% Saline Lock 10 ML Syringe IV (04:32)
[2019-09-08] MEDS: Acetaminophen 325 MG Tablet 650 MG PO (04:32)
[2019-09-08 06:05] VITALS: BP 121/66; PULSE 72; RESP 20; TEMP 36.8; O2SAT 96
[2019-09-08 07:46] LABS: Hematocrit 23.8 % (37-47); Hemoglobin 7.9 g/dL (12.0-15.0); Mean Corp Hgb Conc 33.2 g/dL (32-36); Mean Corpuscular Hgb 32.1 pg (27.0-32.0); Mean Corpuscular Volume 96.7 fL (81-99); Mean Platelet Vol. 12.3 fl (6.2-12.0); POSITIVE COUNT YES; POSITIVE DIFFERENTIAL YES; POSITIVE MORPHOLOGY YES; RBC Distribution Width CV 21.6 % (11.6-14.6); RBC Distribution Width SD 70.6 fl (35.1-43.9); Red Blood Count 2.46 M/mm3 (4.2-5.4)
[2019-09-08 07:49] LABS: Differential Indicated MANUAL DIFF
[2019-09-08 07:51] LABS: Platelet Count 20 K/mm3 (150-450)
[2019-09-08 08:05] LABS: ALB/GLOB Ratio 0.3 RATIO (0.9-2.4); AST(SGOT) 102 U/L (15-37); Alanine Aminotransfer ALT/SGPT 97 U/L (13-56); Albumin, Serum 1.5 g/dL (3.2-5.0); Alkaline Phosphatase 56 U/L (45-117); Anion Gap 5 (5-15); BUN 30 mg/dL (7-18); BUN/Creat Ratio 25.4 RATIO (10-20); Calcium,Total 7.8 mg/dL (8.5-10.1); Chloride 108 mmol/L (98-107); Creatinine, Serum 1.18 mg/dL (0.55-1.02); EST Glomerular Filtration Rate 47 mL/min (>60); Est Glom Filt Rate - Afr Amer 57 mL/min (>60); Estimated Creatinine Clearance 31.98 ml/min; Globulin 4.4 g/dL (2.2-4.2); Glucose 115 mg/dL (74-106); Potassium 3.3 mmol/L (3.5-5.1); Protein, Total 5.9 g/dL (6.4-8.2); Sodium Level 140 mmol/L (136-145)
[2019-09-08 08:24] LABS: Blast 11 % (0-0); Eosinophil 1 % (0-5); Lymphocyte 39 % (19-41); Metamyelocyte 5 % (0-1); Monocyte 22 % (0-10); Myelocyte 1 (0-0); Neutrophil-Band 2 % (0-5); Neutrophil-Segmented 17 % (47-70); Nucleated Red Bld Cells,Manual 5 % (0-5); Promyelocyte 2 (0-0); Total Cells Counted 100 (MANUAL DIFF)
[2019-09-08 08:25] LABS: Anisocytosis 1+; Hypochromasia 2+; Macrocytosis 1+; Platelet Estimate MKD DEC (ADEQ); Polychromasia 1+; Toxic Granulation RARE
[2019-09-08 08:27] LABS: Vacuolated Cells RARE
[2019-09-08 08:28] LABS: Absolute Neutrophil Count 0.4 X10^3/uL (2.0-7.7)
--- NOTE | 2019-09-08 10:06 | CASEMGMT ---
Social Work Note RN updated this worker that pt's daughter will be coming in today with pt's and then will be calling Hospice and will be meeting with Hospice today. Cassie Busch CHEMICAL PRODUCTION ENGINEER, SYSTEMS TEST ENGINEER
--- NOTE | 2019-09-08 10:47 | PCM.DC ---
- Discharge Diagnoses Reason(s) for Visit for Discharge Instructions: Generalised weakness You will use the following diet at home:: Regular Your food should be the consistency of: Regular Your liquids should be the consistency of: Regular/Thin Discharge Activity: Return to Normal Activity Allergies/Adverse Reactions: Allergies aspirin Adverse Reaction (Verified 09/07/19 12:30) Unknown Medications to take at Discharge ergocalciferol (vitamin D2) 1,250 mcg (50,000 unit) capsule 50,000 unit PO MO 28 Days #4 cap 09/21/18 nebivolol 10 mg tablet 10 mg PO DAILY 90 Days #90 tab 09/21/18 Omeprazole 20 mg PO DAILY 09/07/19 Unicomplex-M 1 tab PO DAILY 09/07/19 Acetaminophen [Tylenol Tablet] 650 mg PO Q6H PRN PRN tablet 09/08/19 Ensure Enlive 120 ml PO 4X/DAY #120 liquid 09/08/19 The following prescriptions were given: Ensure Enlive 120 ml PO 4X/DAY #120 liquid Transmission Status: Pending to [facility] - [id number] Primary Care Physician: rCuz Dias Chi, MD [Primary Care Provider] - Test Results: Test results from this visit will be discussed in further detail at your follow-up appointment, if applicable. Proposed Discharge Date: 09/08/19
--- NOTE | 2019-09-08 10:51 | DS.PCM_ITS ---
Discharge Date and Diagnosis Date of Admission: 09/07/19 Date of Discharge: 09/08/19 - Primary Discharge Diagnosis Debility AML Hypokalemia Pancytopenia Acute hypoxic respiratory insufficiency - Secondary Discharge Diagnosis Chronic Problems (Last Reviewed 09/01/19 @ 13:59 by Sidra Joshi) Hyperlipidemia (Chronic) Essential (primary) hypertension (Chronic) Hospital Course and Treatment None Operations: None Procedures: None Summary of Care Provided: The patient is a 78 year old F has medical history of hypertension, hyperlipidemia who was admitted with progressive weakness. Patient was recently diagnosed with AML and had refused treatment with oncology. She presented because her labs were abnormal with hemoglobin of 5.4. She received 2 units of packed RBC. Repeat blood work was 7.9. Potassium was also replaced. Hospice met with the family and the plan was discharged home with hospice. The day of discharge, her white cell count was 2.1, hemoglobin 7.9, platelet count 20, blood cells 11%, sodium 140, potassium 3.3, chloride 1098, bicarbonate 27, creatinine 1.18 down from 1.79, BUN was 30, bilirubin increased to 1.30, AST 102, ALT 97 ALP 56, albumin was 1.5. Patient was on 2 L of oxygen. She was discharged to hospice. Subjective: On the day of discharge, patient was seen and examined. No acute events overnight. Family was meeting Hospice again today Objective: Physical exam: General: Alert, Oriented x3, Cooperative, Lethargic HEENT: Atraumatic, PERRLA, EOMI, Normocephalic, - - Pale conjunctiva Oral: Dry Mucosa Neck: Supple, No JVD Lungs: Clear to auscultation, Normal air movement, No rhonchi, No wheeze, No rales Cardiovascular: Regular rate, Regular Rhythm, Normal S1, Normal S2, No murmurs Abdomen: Soft, Non Tender, Non-Distended, No Hepato-splenomegaly Extremities: No edema, Capillary Refill Less than 3 Seconds Skin: No rashes, No breakdown, - - Skin is pale Neurological: Neuro grossly intact, Sensory exam intact to light touch and pain Psych/Mental Status: Normal Affect, Appropriate - Physical Exam Vitals/I&O's: Vital Signs Temp Pulse Resp BP Pulse Ox 98.3 F 72 20 H 121/66 H 96 09/08/19 06:05 09/08/19 06:05 09/08/19 06:05 09/08/19 06:05 09/08/19 06:05 Oxygen Flow Rate (L/min) 2 Oxygen Delivery Method Nasal Cannula Weight: 80.5 kg Body Mass Index (BMI) 31.4 Intake and Output for Last 24 Hours 09/06/19 09/07/19 09/08/19 23:59 23:59 23:59 Intake Total 920 / 1020 200 / 200 Output Total 550 / 550 Balance 920 / 670 -350 / -350 Laboratory Results 09/07/19 12:50: PT 17.1 H, INR 1.4 09/07/19 12:50: WBC 2.7 L, RBC 1.55 L, Hgb 5.4 L*, Hct 17.3 L, MCV 111.6 H, MCH 34.8 H, MCHC 31.2 L, RDW Std Deviation 80.8 H, RDW Coeff of Kalpesh 20.2 H, Plt Count 31 L*, MPV 12.1 H, Neut % (Auto) Not Reportable, Absolute Neuts (auto) 0.6 L, Absolute Lymphs (auto) 1.10, Total Counted 100, Neutrophils % (Manual) 22 L, Lymphocytes % (Manual) 40, Monocytes % (Manual) 9, Metamyelocytes % 7 H, Myelocytes % 5 H, Promyelocytes % 4 H, Blast Cells % 13 H*, Diff Path Review December foll, Platelet Estimate MKD DEC, RBC Morphology N CHROM, Anisocytosis 1+ 09/07/19 12:50: Sodium 139, Potassium 3.2 L, Chloride 104, Carbon Dioxide 24.0, Anion Gap 11, BUN 34 H, Creatinine 1.79 H, Estim Creat Clear Calc 21.08, Est GFR (MDRD) Af Amer 35 L, Est GFR (MDRD) Non-Af 29 L, BUN/Creatinine Ratio 19.0, Glucose 176 H, Calcium 8.1 L, Total Bilirubin 0.90, AST 82 H, ALT 90 H, Alkaline Phosphatase 60, Total Protein 6.6, Albumin 1.9 L, Globulin 4.7 H, Albumin/Globulin Ratio 0.4 L 09/07/19 12:50: Blood Type A POSITIVE, Antibody Screen NEGATIVE, Crossmatch See Detail 09/08/19 07:38: WBC WHEEL AND PINION INSPECTOR, Corrected WBC 2.0 L, RBC 2.46 L, Hgb 7.9 L, Hct 23.8 L, MCV 96.7 D, MCH 32.1 H, MCHC 33.2, RDW Std Deviation 70.6 H, RDW Coeff of Kalpesh 21.6 H, Plt Count 20 L*, MPV 12.3 H, Neut % (Auto) Not Reportable, Absolute Neuts (auto) 0.4 L, Absolute Lymphs (auto) 7.80 H, Total Counted 100, Neutrophils % (Manual) 17 L, Band Neutrophils % 2, Lymphocytes % (Manual) 39, Monocytes % (Manual) 22 H, Eosinophils % (Manual) 1, Metamyelocytes % 5 H, Myelocytes % 1 H, Promyelocytes % 2 H, Blast Cells % 11 H*, Nucleated RBCs/100 WBC 5, Diff Path Review May foll, Toxic Granulation RARE, Toxic Vacuolation RARE, Platelet Estimate MKD DEC, Polychromasia 1+, Hypochromasia 2+, Anisocytosis 1+, Macrocytosis 1+ 09/08/19 07:38: Sodium 140, Potassium 3.3 L, Chloride 108 H, Carbon Dioxide 27.0, Anion Gap 5, BUN 30 H, Creatinine 1.18 H, Estim Creat Clear Calc 31.98, Est GFR (MDRD) Af Amer 57 L, Est GFR (MDRD) Non-Af 47 L, BUN/Creatinine Ratio 25.4 H, Glucose 115 H, Calcium 7.8 L, Total Bilirubin 1.30 H, AST 102 H, ALT 97 H, Alkaline Phosphatase 56, Total Protein 5.9 L, Albumin 1.5 L, Globulin 4.4 H, Albumin/Globulin Ratio 0.3 L Current Medications Acetaminophen (Tylenol) 650 mg PO Q6H PRN PRN PRN Reason: for temperature > 100.4 Last Admin: 09/08/19 04:32 Dose: 650 mg Documented by: Ergocalciferol (Vitamin D) 50,000 unit PO MO [facility] Nebivolol (Bystolic) 10 mg PO DAILY [facility] Nutritional Formula (Lactose Free) (Ensure Enlive) 120 ml PO 4X/DAY TARA Last Admin: 09/07/19 20:15 Dose: Not Given Documented by: Pantoprazole Sodium (Protonix) 20 mg PO DAILY [facility] Sodium Chloride () 10 - 40 ml IV UD PRN PRN Reason: SALINE FLUSH Last Admin: 09/08/19 04:32 Dose: 10 ml Documented by: Discharge Diet: No Restrictions Discharge Activity: Return to Normal Activity Home Medications: Medications to take at Discharge ergocalciferol (vitamin D2) 1,250 mcg (50,000 unit) capsule 50,000 unit PO MO 28 Days #4 cap 09/21/18 nebivolol 10 mg tablet 10 mg PO DAILY 90 Days #90 tab 09/21/18 Omeprazole 20 mg PO DAILY 09/07/19 Unicomplex-M 1 tab PO DAILY 09/07/19 Acetaminophen [Tylenol Tablet] 650 mg PO Q6H PRN PRN tab 09/08/19 Ensure Enlive 120 ml PO 4X/DAY #120 liquid 09/08/19 Following Prescrptions Were Given to Patient: Ensure Enlive 120 ml PO 4X/DAY #120 liquid Transmission Status: Received by [facility] - [id number] Primary Care Physician: Cruz Dias Chi, MD [Primary Care Provider] - Disposition: Home with Hospice Minutes spent on discharge:: 40 Patient Condition:: Stable Medical Necessity - Tobacco Use Smoking Status: Former smoker Tobacco Use: Secondhand, Cigarettes Meaningful Use Info Meaningful Use Diagnoses (Choose all that apply): None applicable Code Visit Inpatient E&M: 38927 Disch Hosp
[2019-09-08 11:34] VITALS: BP 132/72; PULSE 73; RESP 14; TEMP 36.3; O2SAT 97
--- NOTE | 2019-09-08 12:06 | NURSING ---
Call to [facility] to find out what the plan was for patient, told Karely that there was no documentation on the chart or in the computer. She states that Nita met with the patient and family last evening around 5pm and they signed all the papers. Karely states that we were/are supposed to let Hospice know when the patient is discharged so that they can go over to house and do their assessments and get everything set up. This RN states that the patient will be discharged today but we needed to know what the plan was from Hospice before we sent patient home. This RN states that the patient is on oxygen and was inquiring about Hospice setting up 02 needs or what the plan would be for the patient to get home. Karely decided to call Ene, patient's daughter, to get more information about what medical equipment would be needed when the patient got home. After speaking with Ene, Karely called this RN back and states that Hospice will have equipment patient needs at home set up around [address] Nguyen to make aware of this plan. Dr. Nguyen states that she is in agreement and ok for us to set up transportation with oxygen from an ambulance for patient to be dc home. Vicky states that she called [facility] and they plan to pick patient up to return home at 5pm. Patient's daughter made aware of plan is in agreement.
--- NOTE | 2019-09-08 13:25 | CASEMGMT ---
Addendum entered by Cassie Busch 09/08/19 13:30: CHITO faxed discharge instructions and summary to [facility]. Original Note: Social Work Note SW updated that pt will be discharged home with Hospice and Hospice will be delivering equipment to pt's home at 4:00pm and pt will need transportation arranged to return home. CHITO placed a call to [facility] and arranged transportation via cot for 5:00pm. Transportation form completed and given to maple products maker and copy on pt's chart. CHITO updated RN and pt's daughter on transportation time. Plan: Home with Hospice with [facility] transporting pt at 5:00pm Cassie Busch ARTILLERY OR NAVAL GUNFIRE OBSERVER, BUILD MASTER
--- NOTE | 2019-09-08 13:35 | NURSING ---
patient continues to be resting comfortably in bed. family requests this RN let patient sleep.
[2019-09-08 14:17] LABS: Pathologist Review Reviewed
[2019-09-08] MEDS: Pantoprazole Sodium 20 MG Tablet PO (14:29)
[2019-09-08] MEDS: Nebivolol HCl 10 MG Tablet PO (14:29)
[2019-09-08 14:32] LABS: Pathologist Review Reviewed
[2019-09-08 15:30] VITALS: BP 141/70; PULSE 79; RESP 20; TEMP 37.7; O2SAT 95
--- NOTE | 2019-09-08 16:46 | NURSING ---
Report given to Hospice nurse via phone at this time.
[2019-09-09 01:06] LABS: Absolute Lymphocyte Count 0.78 X10^3/uL (0.83-4.51); Lymphocyte # 0.78 X10^3/ul (4.0)
== END 2019-09-08 17:31 | disposition hospice, home (50) ==
LOC: ED 14:05 → MS3 14:32
PROVIDERS: Admitting Provider Family Medicine; Emergency Provider Emergency Medicine; PCP Family Medicine Geriatric Medicine; Visit Provider Internal Medicine
DX: C92.00 Acute myeloblastic leukemia, not having achieved remission (principal); E78.5 Hyperlipidemia, unspecified; R06.89 Other abnormalities of breathing; E87.6 Hypokalemia; I10 Essential (primary) hypertension; D61.818 Other pancytopenia; M19.90 Unspecified osteoarthritis, unspecified site; K21.9 Gastro-esophageal reflux disease without esophagitis; E11.9 Type 2 diabetes mellitus without complications; G25.0 Essential tremor; E66.9 Obesity, unspecified; Z79.899 Other long term (current) drug therapy; Z85.118 Personal history of other malignant neoplasm of bronchus and lung; Z71.3 Dietary counseling and surveillance; Z87.891 Personal history of nicotine dependence; Z68.33 Body mass index [BMI] 33.0-33.9, adult; R53.1 Weakness; Z98.890 Other specified postprocedural states
CPT/HCPCS: 36415; 36430; 80053; 85025; 85610; 86850; 86900; 86901; 86920; 86922; 97802; 99218; 99283; J7040; P9016; A4216; G0378